=== PATIENT | male | born 1960 | race Caucasian/White ===

== ENCOUNTER 2017-04-26 19:29 | Emergency (ER) | payer OTHER ==
[~2017-04-26] VITALS: Ht 182.9 cm; Wt 95.9 kg
[~2017-04-26 19:29] MED LIST: ALBUTEROL S2.5 MG/.5 IN; AMLODIPINE5 MG PO; APRESOLINE50 MG PO; BUMETANIDE2 MG IN; CARVEDILOL25 MG PO; CLONIDINE0.1 MG PO; CLONIDINE0.3 MG PO; CLORPRES PO; DELTASONE20 MG PO; DUONEB IN; FUROSEMIDE40 MG PO; GABAPENTIN100 MG PO; HYDRALAZINE100 MG PO; HYDRALAZINE25 MG PO; HYDROCHLORO25 MG/TAB PO; HYDROCHLOROT25 MG PO; K-TAB20 MEQ PO; LASIX 80 MG TAB80 M1 PO; LISINOP/HCTZ1 TA2 PO; LISINOPRIL20 MG PO; LOPRESSOR25 MG PO; METOLAZONE5 MG PO; NAPROXEN250 MG PO; NORVASC PO; NORVASC10 MG PO; NORVASC2.5 MG PO; OMEPRAZOLE20 MG PO; PERCOCET 5/325M1 TAB PO; PREDNISONE20 MG PO; SERTRALINE50 MG PO; SPIRONOLACT25 MG PO; VANCOMYCIN HCL1 GM IV; VITAMIN D50000 UN1 PO; ZESTRIL10 M1 PO; ZOCOR20 M1 PO; ZPAK PO
[2017-04-26 20:35] VITALS: BP 126/64
== END 2017-04-26 20:35 | disposition left against medical advice (07) | DRG 312 ==
LOC: ED 19:29
DX: R55 Syncope and collapse (principal); I95.9 Hypotension, unspecified; N18.3 Chronic kidney disease, stage 3 (moderate); Z91.19 Patient's noncompliance with other medical treatment and regimen; Y92.524 Gas station as the place of occurrence of the external cause; I12.9 Hypertensive chronic kidney disease with stage 1 through stage 4 chronic kidney disease, or unspecified chronic kidney disease; Z72.0 Tobacco use

== ENCOUNTER 2018-02-22 22:13 | Emergency (ER) | payer OTHER, MEDICARE ==
[~2018-02-22] VITALS: Ht 182.9 cm; Wt 100.2 kg
[2018-02-22 23:07] LABS: IMMATURE GRANULOCYTES 0.9 % (0.0-1.0); MEAN CORPUSCULAR HGB 31.8 pG CALC (26.0-32.0); MEAN CORPUSCULAR HGB CONC 32.1 g/L CALC (32.0-36.0); NEUT# 5.83 thou/uL (1.82-7.42); RED BLOOD COUNT 3.24 mill/uL (4.70-6.10); RED CELL DISTRI WIDTH 13.2 % (11.5-15.5)
[2018-02-22 23:09] LABS: HEMATOCRIT 32.1 % (39.0-50.0); HEMOGLOBIN 10.3 g/dl (14.0-18.0); MEAN CELL VOLUME 99.1 fL CALC (80.0-100.0)
[2018-02-22 23:18] LABS: BILIRUBIN, TOTAL 0.5 mg/dL (0.0-1.4)
[2018-02-22 23:22] LABS: ALBUMIN 4.1 g/dL (3.2-5.0); CREATININE 9.3 mg/dL (0.7-1.3); POTASSIUM 4.9 mmol/l (3.5-5.1); TOTAL PROTEIN 7.2 g/dL (6.3-8.2)
[2018-02-23] MEDS ORDERED: ZPAK PO (02:44)
[2018-02-23] MEDS ORDERED: CODEINE/GUAIFEN1 SOL PO (02:44)
[2018-02-23 02:53] VITALS: BP 172/90
== END 2018-02-23 03:00 | disposition home or self-care (01) | DRG 202 ==
LOC: ED 22:13
PROVIDERS: Emergency Medicine
DX: J20.9 Acute bronchitis, unspecified (principal); N18.6 End stage renal disease; I12.0 Hypertensive chronic kidney disease with stage 5 chronic kidney disease or end stage renal disease; F17.210 Nicotine dependence, cigarettes, uncomplicated; R05 Cough; R50.9 Fever, unspecified; R07.81 Pleurodynia; Z99.2 Dependence on renal dialysis

== ENCOUNTER 2018-12-31 08:46 | Day surgery (SDC) | payer MEDICARE ==
[~2018-12-31] VITALS: Ht 170.2 cm; Wt 99.4 kg
[~2018-12-31 08:46] MED LIST changes: +ADVIL MIGRAI200 M1 PO; +ALER-CAP25 MG PO; +ANTI-DIARRHE2 M1 PO; +ASPIRIN81 MG PO; +CODEINE/GUAIFEN1 SOL PO; +LIDOCAINE/PRILO1 CRE EX; +LORATADINE10 M1 PO; +TERAZOSIN5 MG PO; +TYLENOL 500MG TAB PO
[2018-12-31] MEDS ORDERED: NORCO1 TA1 PO (11:14)
[2018-12-31 13:01] VITALS: BP 163/87
== END 2018-12-31 12:05 | disposition home or self-care (01) ==
LOC: ORM 08:46
PROVIDERS: ATTEND Surgery
PROC: 0WHG43Z Insertion of Infusion Device into Peritoneal Cavity, Percutaneous Endoscopic Approach (ICD-10-PCS; principal; 2018-12-31)
DX: I12.0 Hypertensive chronic kidney disease with stage 5 chronic kidney disease or end stage renal disease (principal); N18.6 End stage renal disease; Z99.2 Dependence on renal dialysis
CPT/HCPCS: J0131

== ENCOUNTER 2019-05-16 07:41 | Emergency (ER) | payer OTHER, MEDICARE ==
[~2019-05-16] VITALS: Ht 167.6 cm; Wt 99.0 kg
[~2019-05-16 07:41] MED LIST changes: +NORCO1 TA1 PO
[2019-05-16 08:50] LABS: HEMOGLOBIN 8.4 g/dl (14.0-18.0); IMMATURE GRANULOCYTES 1.4 % (0.0-5.0); MEAN CELL VOLUME 98.1 fL CALC (80.0-100.0); MEAN CORPUSCULAR HGB 31.9 pG CALC (26.0-32.0); MEAN CORPUSCULAR HGB CONC 32.6 g/L CALC (32.0-36.0); NEUT# 10.44 thou/uL (1.82-7.42); RED BLOOD COUNT 2.63 mill/uL (4.70-6.10); RED CELL DISTRI WIDTH 13.9 % (11.5-15.5)
[2019-05-16 09:00] LABS: HEMATOCRIT 25.8 % (39.0-50.0); PROTHROMBIN TIME 10.7 SECONDS (9.0-12.5)
[2019-05-16 09:05] LABS: BILIRUBIN, TOTAL 0.7 mg/dL (0.0-1.4); MAGNESIUM 1.6 mg/dL (1.6-2.3)
[2019-05-16 09:19] LABS: TOTAL PROTEIN 5.4 g/dL (6.3-8.2)
[2019-05-16 09:20] LABS: CREATININE 21.1 mg/dL (0.7-1.3)
[2019-05-16] MEDS ORDERED: CALCITRIOL0.25 MC1 PO (09:20)
[2019-05-16] MEDS ORDERED: VELPHORO500 MG PO (09:22)
[2019-05-16 11:16] VITALS: BP 116/68
== END 2019-05-16 11:00 | DRG 193 ==
LOC: ED 07:41
DX: J18.9 Pneumonia, unspecified organism (principal); N18.6 End stage renal disease; I12.0 Hypertensive chronic kidney disease with stage 5 chronic kidney disease or end stage renal disease; F17.200 Nicotine dependence, unspecified, uncomplicated; Z99.2 Dependence on renal dialysis; Z88.0 Allergy status to penicillin

== ENCOUNTER 2022-07-09 17:47 | Inpatient (IN) | payer MEDICARE ==
[2022-07-09] VITALS (12 sets, daily range): BP systolic 108–158; BP diastolic 58–84
[~2022-07-09] VITALS: Ht 170.2 cm; Wt 94.1 kg
[~2022-07-09 17:47] MED LIST changes: +AMLODIPINE BESY10 MG PO; +CALCITRIOL0.25 MC1 PO; +SENSIPAR30 MG PO; +VELPHORO500 MG PO
--- NOTE | 2022-07-09 17:47 | NUR ---
PT TO ROOM IN PERSONAL WC
[2022-07-09] MEDS ORDERED: IBUPROFEN600 MG PO (18:01)
[2022-07-09] MEDS ORDERED: CLOPIDOGREL75 MG PO (18:02)
[2022-07-09] MEDS ORDERED: DOCUSATE CAL240 MG PO (18:02)
[2022-07-09] MEDS ORDERED: ROSUVASTATIN CA20 MG (18:02)
[2022-07-09] MEDS ORDERED: BENADRYL 25MG C25 MG PO (18:03)
[2022-07-09] MEDS ORDERED: ASPIRIN 81 LOW81 MG (18:03)
[2022-07-09] MEDS ORDERED: HYDROCODONE/ACE1 T12 PO (18:04)
[2022-07-09] MEDS ORDERED: PHOSLYRA PO (18:05)
[2022-07-09 18:35] LABS: HEMATOCRIT 34.8 % (39.0-50.0); HEMOGLOBIN 10.7 g/dl (14.0-18.0); IMMATURE GRANULOCYTES 0.2 % (0.0-5.0); MEAN CORPUSCULAR HGB 27.9 pG CALC (26.0-32.0); MEAN CORPUSCULAR HGB CONC 30.7 g/dL CAL (32.0-36.0); NEUT# 5.52 thou/uL (1.82-7.42); RED BLOOD COUNT 3.83 mill/uL (4.70-6.10); RED CELL DISTRI WIDTH 14.4 % (11.5-15.5)
[2022-07-09 18:36] LABS: MEAN CELL VOLUME 90.9 fL CALC (80.0-100.0)
[2022-07-09 18:50] LABS: ALBUMIN 3.8 g/dL (3.2-5.0); BILIRUBIN, TOTAL 0.3 mg/dL (0.0-1.4); TOTAL PROTEIN 6.1 g/dL (6.3-8.2)
[2022-07-09 19:00] LABS: PROTHROMBIN TIME 10.2 SECONDS (9.0-12.5)
[2022-07-09 19:01] LABS: POTASSIUM 3.4 mmol/l (3.5-5.1)
[2022-07-09 19:02] LABS: CREATININE 7.2 mg/dL (0.7-1.3)
--- NOTE | 2022-07-09 19:20 | NUR ---
PT TRANSFERRED TO BED VIA HOYIER LIFT.
--- NOTE | 2022-07-09 19:30 | NUR ---
PT. C/O GENERALZIED BACK PAIN AND MUSCLE SPASM OF UPPER AND LOWER EXTS. STATES "WAS SEEN TODAY AND DRS OFFICE AND TOLD TO COME TO ER BECAUSE HE MAY HAVE HAD A STROKE, I TOOK HIM HOME TO DO HIS DIALYSIS BEFORE BRINGING HIM TO ER. 3 WEEKS AGO HE COULD TRANSFER BY HIMSELF FROM W/C TO CHAIR AND LAST 2 WEEKS HE WAS ABLE TO TRANSFER ONLY WITH MY ASSIST AND THE PAST 3-4 DAYS HE CA'T EVEN LIFT HIS ARMS TO FEED HIMSELF DUE TO WEAKNESS AND THE SPASMS". PT. WITH HX OF BACK PROBLEMS AND W/C BOUND FOR SEVERAL YEARS BUT OVER THE PAST MONTH HE'S GONE DOWN [place] WITH INCREASED WEAKNESS AND UNABLE TO DO ANYTHING OR BE LEFT ALONE".
--- NOTE | 2022-07-09 20:00 | NUR ---
PT. STATES "STARTED WITH TIGNLING IN RIGHT ARM ABOUT 3-4 WEEKS AGO THAT RAN FROM HIS FINGERS UP TO HIS SHOULDER AND AT THAT TIME, NOTED THAT MY LEGS WERE BECOMING WEAKER, 2-3 WEEKS AGO I WAS ABLE TO TRANSFER TO THE , AND THEN ABOUT 1-2 WEEKA AGO HAD TO HAVE MY TRANSFER ASSIST AND OVER THIS PAST WEEK I CAN'T EVEN LIFT MY ARMS TO FEED MYSELF AND HOLD ANYTHING WITHOUT DROPPING IT"
--- NOTE | 2022-07-09 20:30 | NUR ---
RETURNED FROM CT SCAN. RESPOSITIONED FOR COMFORT ONTO RIGHT SIDE, PER PT. REQUEST STATES "I HAVE A SORE ON THE LEFT BUTTOCK THAT CAUSES PAIN IF I LAY IN ONE POSITION TO LONG". UNBABLE TO TURN PT. FAR ENOUGH OVER TO EXAMINE, DUE TO PAIN, PT. STATES "THAT'S FAR ENOUGH, NO MORE". STATES "PAIN MEDS HAVE HELPED SOME BUT WHEN THE SPASMS START, IT BECOMES VERY PAINFUL.
--- NOTE | 2022-07-09 21:31 | NUR ---
UPDATED FAMILY RE:WAIT FOR CT RESULTS. VERB UNDERSTANDING
--- NOTE | 2022-07-09 22:30 | NUR ---
PT. ASLEEP AT PRESENT. AT BEDSIDE. VSS.
--- NOTE | 2022-07-09 23:30 | NUR ---
TELE NEURO INTERVIEWING PT AND AT THIS TIME
[2022-07-10] VITALS (12 sets, daily range): BP systolic 117–169; BP diastolic 61–87
--- NOTE | 2022-07-10 00:30 | NUR ---
ALERT AND ORIENTED X3. CONTINUES TO HAVE ARM AND LEG SPASMS, BACK PAIN.
--- NOTE | 2022-07-10 01:45 | NUR ---
REPORT CALLED TO [facility]AN RE:ADMIT. TRANSPORTED VIA STRETCHER TELE IN PLACE.
--- NOTE | 2022-07-10 01:50 | NUR ---
RECIEVED PT FROM ED IN STABLE CONDITION. PT A COMPLETE TRANSFER TOOK 4 NURSES TO MOVE FROM STRETCHER TO BED. ALERT AND ORIENTATED X3. PT DENIES ANY NEEDS AT THIS TIME. ALL SAFETY PRECAUTIONS IN PLACE AT THIS TIME
[2022-07-10 02:59] LABS: TSH, 3RD GENERATION 2.05 uIU/mL (0.47 - 4.68)
--- NOTE | 2022-07-10 04:00 | NUR ---
PT SLEEPING IN BED, AROUSES TO TOUCH. PT VERY WEAK. PT DENIES ANY NEEDS AT THIS TIME ALL SAEFTY PRECAUTIONS IN PLACE AT THIS TIME.
--- NOTE | 2022-07-10 07:49 | NUR ---
Patient is screned for PT intervention and may benefit from consult if medical agrees
--- NOTE | 2022-07-10 12:45 | NUR ---
pATIENTNOTEDTO HAVE BIDIRECTIONAL NYSTAGMUS. PATIENT APPEARS TO HAVE DECREASED RESPONSIVENESS BUT IS EASILY AROUSED TO VERBAL STIMULI. PATIENT FOLLOWS COMMANDS AND ABLE TO ANSWER ALL QUESTIONS ASKED. PATIENT HAS NO DYSARTHRIA OR ASPHASIA. PATIENT HAS UNILATERAL DRIFTS AND UPPER BILATERAL ATAXIA. VISUAL NG AND SENSATION INTACT. STATES DECLINE STARTED 2 WEEKS PRIOR. MD NOTIFIED OF STATUS
--- NOTE | 2022-07-10 18:35 | NUR ---
patient going to dialysis at this time. accompanying him in order to oversee care as she is his at home caregiver and dialyses him there. patient just ate 100 percent of his dinner and is feeling ready for dialysis. patient is less lethargic since coming back from his MRI at 1600.
--- NOTE | 2022-07-10 23:00 | NUR ---
DIALYSIS NOTE: START TIME:2005 END TIME:2254 TIME COMPLETED: 2.5 HOURS FLUID REMOVED: 600 ml PRE TX WEIGHT: 84.1 KG POST TX WEIGHT: 83.5 KG PRE TX VS: NIBP 151/76mmHg HR 73 bpm RR 18/MIN T 97.8 F POST TX VS: NIBP 149/72mmHg HR 76 bpm RR 18/MIN T 98.2 F HEP B ANTIGEN: 07/10/22 HEP B ANTIBODY: 07/10/22 VERIFIED INFORMED CONSENT SIGNED BY PATIENT AND DR. PALMA, WITNESSED BY Bonnie NEWELL RN. LABS REVIEWED, ASSESMENT COMPLETED. ORDERS FOR HEMODIALYSIS OBTAINED FROM DR. PALMA. EDUCATION PROVIDED TO PATIENT. ACCESS: LUE AVF, +THRILL, +BRUIT. CANNULATION COMPLETED WITH 15G NEEDLES BY PT'S . PT'S DIALYZES PT AT HOME AND REQUEST TO CANNULATE. POST DIALYSIS TX NEEDLES REMOVED AND PRESSURE HELD BY FISTULA CLAMPS FOR 10 MINUTES UNTIL BLEEDING CONTROLLED, DRY DRESSING APPLIED AND SECURED WITH PAPER TAPE. MEDICATIONS ADMINISTERED: HEPARIN 4,000 UNITS LOADING DOSE, RETACRIT 4,000 UNITS, SEE E-MAR. ASSESMENT: PT A/OX3, PLEASANT AND COOPERATIVE. RESPIRATIONS REGULAR AND UNLABORED. LUNGS clear WITH DIMINISHED BASES. WEARING 02 @2L/MIN VIA NC, SR ON TELEMETRY. TRACE EDEMA BLE. PRIMARY NURSE Jennifer SALDAÑA RN, REPORT RECEIVED PRE TX AND RETURNED POST TX. Serafin PRASAD SERIAL #:[id number] DIALYZER/LOT #: [id number] CARTRIDGE LOT #: [id number] PH: 7.4 WATER TEMP: 75.7 R/O REJECTION: 99 % EXPECTED CONDUCTIVITY: 13.8 ACTUAL CONDUCTIVITY: 13.9
[2022-07-11] VITALS (30 sets, daily range): BP systolic 82–156; BP diastolic 45–87
--- NOTE | 2022-07-11 05:24 | NUR ---
PATIENT RECIEVED DIALYSIS THIS EVENING. 600 ML TAKEN OFF PATIENT TOLERATED WELL. HOWEVER WAS UP AND AGITATED THIS MORNING PATIENT STATES HE CANNOT MOVE
[2022-07-11 05:33] LABS: ALBUMIN 3.3 g/dL (3.2-5.0); MAGNESIUM 1.9 mg/dL (1.6-2.3)
[2022-07-11 05:50] LABS: CREATININE 6.4 mg/dL (0.7-1.3)
--- NOTE | 2022-07-11 08:00 | NUR ---
RC'D REPORT, PT IN BED ASLEEP, VITALS ARE UNSTABLE, INFORMED MD, PT IS NOW ON NC 4L, PT CYANOTIC, SPOKE TO AND EXPLAINED WHAT IS HAPPENING,TRANSFERRING PT TO ICU.
--- NOTE | 2022-07-11 09:28 | NUR ---
pt transfered from [facility] placed on bipap 08/03 35% pt tolerating well
[2022-07-11 09:31] LABS: HEMATOCRIT 34.9 % (39.0-50.0); HEMOGLOBIN 10.3 g/dl (14.0-18.0); IMMATURE GRANULOCYTES 0.5 % (0.0-5.0); MEAN CELL VOLUME 94.1 fL CALC (80.0-100.0); MEAN CORPUSCULAR HGB 27.8 pG CALC (26.0-32.0); MEAN CORPUSCULAR HGB CONC 29.5 g/dL CAL (32.0-36.0); NEUT# 7.04 thou/uL (1.82-7.42); RED BLOOD COUNT 3.71 mill/uL (4.70-6.10); RED CELL DISTRI WIDTH 14.4 % (11.5-15.5)
--- NOTE | 2022-07-11 10:48 | NUR ---
SPEECH PATHOLOGY-- DEVOPS CONSULTANT ATTEMPTED TO SEE PT. PT CURRENTLY ON BIPAP D/T HIGH CO2 LEVELS. DEVOPS CONSULTANT TO F/U FOR EVAL LATER TODAY. DISCUSSED WTIH RT ABOUT TRANSITIONING TO NC O2.
--- NOTE | 2022-07-11 10:48 | NUR ---
[facility] CALLED TO STATE THEY WERE TRANSFERRING PT TO ICU TO BE PLACED ON BIPAP, SATS HAD DROPPED TO THE 70'S, PT NOT AROUSING NORMAL. ONE PT IS PLACED ON BIPAP IN ICU HE BEGAN TO OPEN EYES AND RESPOND MORE. ABLE TO RAISE MESHA ARMS, ASKING WHY HE WAS PLACED ON BIPAP, PT AT BEDSIDE. DIALYSIS NURSE HERE WILL NOT HAVE DIALYSIS TODAY BECAUSE OF BLOOD PRESSURE OF 91/54 WILL RESUME TOMORROW AT BEDSIDE. PT IS LESS RESTLESS, TALKING AND ANSWERING QUESTIONS APPROPRIATELY. STATES THE WEAKNESS IS CAME IN STARTED CLOSE TO A MONTH AGO AND HAS PROGRESSIVELY GOTTEN WORSE,, A MONTH AGO COULD HELP TRANSFER HIMSELF TO WHEELCHAIR, ABOUT 2 WEEKS AGO GOT TO THE POINT HE NEEDED ALOT OF HELP FOR TURNING OVER AND TRANSFERING HIMSELF, TO A COUPLE OF DAYS AGO TO WEAK TO DO ANYTHING FOR HIMSELF. HE STATES HE HAS BEEN USING A WHEELCHAIR FOR APPROXIMATELY 1 YEAR FOR SPINAL COMPLAINTS. RECOMMENDING THAT HE HAVE A SPINAL TAP BUT PT IS ON PLAVIX AND CAN NOT BE DONE. CANO RECOMMENDED BUT PT REFUSING, STATES HASNT URINATED FOR OVER 2 YEARS. VITAL SIGNS GETTING BETTER PT REMAINS ON BIPAP. PT ONLY COMPLAINT AT THIS TIME IS HIS COCCYX IS SORE FROM LAYING DOWN ON MATTRESS FOR LAST SEVERAL DAYS. TURNED PT TO RIGHT SIDE.
--- NOTE | 2022-07-11 11:31 | NUR ---
RAYRAY TOLLIVER CAME TO ICU AND STATES THAT DR. JONES HAS AGREED TO DO LUMBAR PUNCTURE WHEN HE HAS THE CHANCE TO COME UP FROM ER. PT IS SLEEPING AT THIS TIME, VITAL SIGNS REMAIN STABLE. LEFT TO GO GET LUNCH AND WILL RETURN SHORTLY. AT THIS TIME, DIRECTOR HAS STATED THAT PT CAN HAVE VISITORS AROUND THE CLOCK, AND CAN STAY LATE SHE WANTS.
--- NOTE | 2022-07-11 12:46 | NUR ---
PT RESTING QUIETLY ON BED, VITAL SIGNS REMAIN THE SAME, WILL CONTINUE TO MONITER.
--- NOTE | 2022-07-11 13:23 | NUR ---
Patient is transferred to ICU and is on BIPAP. We will check in again with him in the afternoon
--- NOTE | 2022-07-11 14:18 | NUR ---
DOING A TELECONFERENCE WITH PT AND .
--- NOTE | 2022-07-11 15:19 | NUR ---
HAVE ASKED FOR MED ORDER FOR ANXIETY, BUT HAVE NOT RECEIVED ORDER OF YET. PT TRYING TO PULL MASK OFF AND MOVING ARMS ALL OVER, CONSTANTLY WANTING TO BE TURNED AND REQUESTING MASK TAKEN OFF.
--- NOTE | 2022-07-11 18:58 | NUR ---
Patient requested for Bipap to be removed to give him a break from the mask. Currently on 6 Liters of oxygen, tolerating well with no signs of distress.
[2022-07-12] VITALS (57 sets, daily range): BP systolic 92–151; BP diastolic 48–84
--- NOTE | 2022-07-12 00:36 | NUR ---
Patient asleep. Not in distress.
--- NOTE | 2022-07-12 04:19 | NUR ---
Patient repositioned. Not in dsitress.
[2022-07-12 05:39] LABS: HEMATOCRIT 35.7 % (39.0-50.0); HEMOGLOBIN 10.7 g/dl (14.0-18.0); MEAN CELL VOLUME 94.2 fL CALC (80.0-100.0); MEAN CORPUSCULAR HGB 28.2 pG CALC (26.0-32.0); RED BLOOD COUNT 3.79 mill/uL (4.70-6.10); RED CELL DISTRI WIDTH 14.4 % (11.5-15.5)
[2022-07-12 05:45] LABS: ALBUMIN 3.5 g/dL (3.2-5.0); POTASSIUM 4.4 mmol/l (3.5-5.1)
--- NOTE | 2022-07-12 05:47 | NUR ---
Patient repositioned. Complain of discomfort on the hips.
[2022-07-12 05:59] LABS: CREATININE 8.5 mg/dL (0.7-1.3)
--- NOTE | 2022-07-12 06:49 | NUR ---
BIPAP STANDBY. PT. ON 5L NC. O2 SAT 100%. DECREASED TO 3L.
--- NOTE | 2022-07-12 07:20 | NUR ---
REMAINS AT BEDSIDE, PT WAS SLEEPING, WOKE PT UP FOR BEDSIDE ASSESSMENT. 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 PT STATES SLEPT THRU MOST OF THE NIGHT WITH NO COMPLAINTS EXCEPT FOR BACK AND BUTTOCKS SORE FROM LAYING. NO OPEN WOUND IN AREA, REDNESS NOTED ON COCCYX BUT NO DIFFERENT THAN YESTERDAYS FINDINGS. NEURO CHECK REMAINS THE SAME, WILL CONTINUE TO MONITER.
--- NOTE | 2022-07-12 08:52 | NUR ---
INDIO EXAMINING PT AND ORDERED ANOTHER ABG. AFTER ABG DR. PUGH PT PLACED BACK ON BIPAP, WILL ORDER A TRAY FOR LUNCH AND TRY TO SEE HOW HE DOES WITH OUT BIPAP FOR AWHILE. PT WILL WAKE UP AND TALK TO STAFF BUT IS VERY SLOWTO RESPOND AT THIS TIME
--- NOTE | 2022-07-12 09:05 | NUR ---
PT THERAPY HERE WITH LIMITED RANGE OF MOTION EXERCISE.
--- NOTE | 2022-07-12 11:09 | NUR ---
pt continues to rest quietly , bipap remains on pt.
--- NOTE | 2022-07-12 12:23 | NUR ---
SPEAKING WITH PT AND PTS , AND THEY ARE CONCERNED ABOUT WHAT THE PLAN OF ACTION IS FOR HIM, WHAT TO EXPECT, AND INFORMED THEM THAT I WOULD ASK DR. AUGUST TO SPEAK WITH THEM, THEY ALSO STATE THAT THEY WOULD LIKE TO TALK TO HIM ABOUT A DNR, THAT THEY HAD DISCUSSED IT AND THAT IS WHAT THEY WANT TO DO.
--- NOTE | 2022-07-12 13:18 | NUR ---
PT OFF OF BIPAP AND EATING LUNCH AT THIS TIME. N/C @ 4 L SATS 96%, PT HAS INCREASED AWARENESS AND TALKING AT THIS TIME TO STAFF
--- NOTE | 2022-07-12 14:06 | NUR ---
DR. DOAN CONSULTING WITH PT AND AT THIS TIME.
--- NOTE | 2022-07-12 14:52 | NUR ---
DIALYSIS NURSE HERE AT BEDSIDE
--- NOTE | 2022-07-12 16:26 | NUR ---
PT REMAINS ON DIALYSIS WITH NURSE AT BEDSIDE, VITAL SIGNS STABLE.
--- NOTE | 2022-07-12 17:51 | NUR ---
DR. AUGUST HERE TO TALK TO PT AND , THEY HAVE DECIDED AGAINST HAVING A DNR SIGNED AT THIS TIME.
--- NOTE | 2022-07-12 18:00 | NUR ---
DIALYSIS NOTE: START 1537 END 1751 2 HOUR DIALYSIS TX COMPLETED AT BEDSIDE WITH NO FLUID REMOVED, TIME OF TX AND FLUID REMOVAL PER PT AND SPOUSE REQUEST. DR. PALMA AWARE. PT TOLERATED PROCEDURE WELL.
--- NOTE | 2022-07-12 18:13 | NUR ---
CALLED TRANSFER CENTER AND SPOKE WITH JOSE ANGEL AT [facility] FOR POSSIBLE BED PLACEMENT. WILL SEND FACE SHEET AND COVID TEST TO THEM
--- NOTE | 2022-07-12 22:23 | NUR ---
Patient for transfer to [facility]. Transfer coordinated with transfer center. Report was given and [facility] was called for transport. 2199: Transport arrived. 2224: Patient left the unit via stretcher. Not in in distress. On O2 3lpm. Sinus rhythm, no complain of pain.
== END 2022-07-12 22:25 | disposition short-term general hospital (02) | DRG 94 ==
LOC: ED 17:47 → ED-I 07-10 00:10 → ED 07-10 00:44 → MS2 07-10 00:45 → ICU 07-11 09:14
PROVIDERS: Emergency Medicine; Family Medicine; Internal Medicine Nephrology; Nurse Practitioner; ADMIT Internal Medicine; ATTEND Internal Medicine
PROC: 5A09457 Assistance with Respiratory Ventilation, 24-96 Consecutive Hours, Continuous Positive Airway Pressure (ICD-10-PCS; 2022-07-11)
PROC: 5A1D70Z Performance of Urinary Filtration, Intermittent, Less than 6 Hours Per Day (ICD-10-PCS; principal; 2022-07-12)
DX: G61.0 Guillain-Barre syndrome (principal); J96.01 Acute respiratory failure with hypoxia; J96.02 Acute respiratory failure with hypercapnia; N18.6 End stage renal disease; I12.0 Hypertensive chronic kidney disease with stage 5 chronic kidney disease or end stage renal disease; G82.20 Paraplegia, unspecified; N25.81 Secondary hyperparathyroidism of renal origin; E87.29 Other acidosis; M48.02 Spinal stenosis, cervical region; E11.22 Type 2 diabetes mellitus with diabetic chronic kidney disease; D63.1 Anemia in chronic kidney disease; Z99.2 Dependence on renal dialysis; E78.5 Hyperlipidemia, unspecified; I25.10 Atherosclerotic heart disease of native coronary artery without angina pectoris; F17.210 Nicotine dependence, cigarettes, uncomplicated; Z95.5 Presence of coronary angioplasty implant and graft; Z79.02 Long term (current) use of antithrombotics/antiplatelets; Z79.82 Long term (current) use of aspirin; Z99.3 Dependence on wheelchair
CPT/HCPCS: G0378; J1644

== ENCOUNTER 2022-09-21 21:49 | Emergency (ER) | payer MEDICARE ==
[2022-09-21] VITALS (8 sets, daily range): BP systolic 149–188; BP diastolic 66–87
[~2022-09-21] VITALS: Ht 170.2 cm; Wt 82.0 kg
[~2022-09-21 21:49] MED LIST changes: +ASPIRIN 81 LOW81 MG; +BENADRYL 25MG C25 MG PO; +CLOPIDOGREL75 MG PO; +DOCUSATE CAL240 MG PO; +HYDROCODONE/ACE1 T12 PO; +IBUPROFEN600 MG PO; +PHOSLYRA PO; +ROSUVASTATIN CA20 MG
[2022-09-21 22:16] LABS: BASO% 0.5 % (0-3); EOS% 2.5 % (0-8); IMMATURE GRANULOCYTES 1.1 % (0.0-5.0); LYMPH% 22.7 % (15-41); MEAN CELL VOLUME 93.4 fL CALC (80.0-100.0); MEAN CORPUSCULAR HGB 27.2 pG CALC (26.0-32.0); MEAN CORPUSCULAR HGB CONC 29.2 g/dL CAL (32.0-36.0); MONO% 8.9 % (2-13); NEUT# 2.8 thou/uL (1.82-7.42); NEUT% 64.3 % (42-76); RED BLOOD COUNT 3.01 mill/uL (4.70-6.10); RED CELL DISTRI WIDTH 15.1 % (11.5-15.5)
[2022-09-21 22:20] LABS: HEMOGLOBIN 8.2 g/dl (14.0-18.0)
[2022-09-21 22:21] LABS: HEMATOCRIT 28.1 % (39.0-50.0)
[2022-09-21 22:29] LABS: BILIRUBIN, TOTAL 0.2 mg/dL (0.0-1.4); TOTAL PROTEIN 5.1 g/dL (6.3-8.2)
[2022-09-21 22:30] LABS: ALBUMIN 2.7 g/dL (3.2-5.0); CREATININE 2.6 mg/dL (0.7-1.3); POTASSIUM 3.2 mmol/l (3.5-5.1)
[2022-09-21 22:36] LABS: D-DIMER 2.56 mg/L (0.19-0.60)
[2022-09-21 22:41] LABS: ACT PARTIAL THROMBO TIME 30.1 SECONDS (20.0-32.5); PROTHROMBIN TIME 10.2 SECONDS (9.0-12.5)
== END 2022-09-22 00:18 | disposition home or self-care (01) ==
LOC: ED 21:49
PROVIDERS: Family Medicine
DX: R79.81 Abnormal blood-gas level (principal); I12.0 Hypertensive chronic kidney disease with stage 5 chronic kidney disease or end stage renal disease; E11.22 Type 2 diabetes mellitus with diabetic chronic kidney disease; N18.6 End stage renal disease; D63.1 Anemia in chronic kidney disease; Z99.2 Dependence on renal dialysis; F17.200 Nicotine dependence, unspecified, uncomplicated; Z99.81 Dependence on supplemental oxygen

== ENCOUNTER 2022-09-26 19:46 | Inpatient (IN) | payer MEDICARE ==
[2022-09-26] VITALS (16 sets, daily range): BP systolic 128–185; BP diastolic 52–72
[~2022-09-26] VITALS: Ht 170.2 cm; Wt 81.6 kg
[2022-09-26] MEDS ORDERED: APRESOLINE10 MG PO (20:10)
[2022-09-26 20:17] LABS: BASO% 0.1 % (0-3); EOS% 0.1 % (0-8); HEMATOCRIT 27.1 % (39.0-50.0); HEMOGLOBIN 8.1 g/dl (14.0-18.0); LYMPH% 5.3 % (15-41); MEAN CELL VOLUME 91.9 fL CALC (80.0-100.0); MEAN CORPUSCULAR HGB 27.5 pG CALC (26.0-32.0); MEAN CORPUSCULAR HGB CONC 29.9 g/dL CAL (32.0-36.0); MONO% 5.1 % (2-13); NEUT# 6.05 thou/uL (1.82-7.42); NEUT% 88.4 % (42-76); RED BLOOD COUNT 2.95 mill/uL (4.70-6.10)
[2022-09-26 20:28] LABS: ALBUMIN 2.8 g/dL (3.2-5.0); CREATININE 2.6 mg/dL (0.7-1.3); POTASSIUM 3.2 mmol/l (3.5-5.1); TOTAL PROTEIN 5.2 g/dL (6.3-8.2)
[2022-09-26 20:32] LABS: BILIRUBIN, TOTAL 0.3 mg/dL (0.0-1.4)
--- NOTE | 2022-09-26 21:30 | NUR ---
med not in pyxis, called curing room supervisor to get med
--- NOTE | 2022-09-26 23:00 | NUR ---
REPORT GIVEN TO RN, O, PT TRANSERRED UP TO ICU ROOM 7, PT IN STABLE CONDITION
[2022-09-27] VITALS (66 sets, daily range): BP systolic 101–175; BP diastolic 35–73
[2022-09-27 05:52] LABS: BASO% 0.2 % (0-3); HEMATOCRIT 27.1 % (39.0-50.0); HEMOGLOBIN 7.9 g/dl (14.0-18.0); IMMATURE GRANULOCYTES 0.8 % (0.0-5.0); LYMPH% 4.1 % (15-41); MEAN CELL VOLUME 93.4 fL CALC (80.0-100.0); MEAN CORPUSCULAR HGB 27.2 pG CALC (26.0-32.0); MEAN CORPUSCULAR HGB CONC 29.2 g/dL CAL (32.0-36.0); MONO% 5.4 % (2-13); NEUT# 7.84 thou/uL (1.82-7.42); NEUT% 89.5 % (42-76); RED BLOOD COUNT 2.9 mill/uL (4.70-6.10); RED CELL DISTRI WIDTH 15.1 % (11.5-15.5)
[2022-09-27 06:30] LABS: ALBUMIN 2.8 g/dL (3.2-5.0); BILIRUBIN, TOTAL 0.2 mg/dL (0.0-1.4); POTASSIUM 3.6 mmol/l (3.5-5.1); TOTAL PROTEIN 5.3 g/dL (6.3-8.2)
[2022-09-27 06:58] LABS: C-REACTIVE PROTEIN 9.8 mg/dL (0-0.9)
--- NOTE | 2022-09-27 11:16 | NUR ---
FIO2 DECREASED TO 40%
--- NOTE | 2022-09-27 13:32 | NUR ---
FIO2 DECREASED TO 405
[2022-09-28] VITALS (23 sets, daily range): BP systolic 125–182; BP diastolic 50–66
--- NOTE | 2022-09-28 | NUR ---
REPORT RECIEVED FROM YEN MADRIGAL. PT HAS [facility] FISTULA, DIALYSIS M/W/F. YELLOW DNR COPY ON CHART. PATIENT WAS ON 2L NC UPON ARRIVAL TO UNIT, AND RT PLACE PT BACK ON BIPAP AROUNF 1999. FAMILY WAS IN ROOM UNTIL VISITING HOURS WERE OVER. PATIENT IS AOX3 WITH PERIODS OF BRIEF CONFUSION. HEART RHYTHM SEEMS TO BE SINUS ARRYTHMIA FROM 47-90 BPM. VSS, AND PT NAD. RESTING AT THIS TIME.
[2022-09-28 05:51] LABS: BASO% 0.2 % (0-3); EOS% 0.5 % (0-8); HEMATOCRIT 25.2 % (39.0-50.0); HEMOGLOBIN 7.4 g/dl (14.0-18.0); IMMATURE GRANULOCYTES 0.6 % (0.0-5.0); LYMPH% 15.9 % (15-41); MEAN CELL VOLUME 91.3 fL CALC (80.0-100.0); MEAN CORPUSCULAR HGB 26.8 pG CALC (26.0-32.0); MEAN CORPUSCULAR HGB CONC 29.4 g/dL CAL (32.0-36.0); MONO% 10.4 % (2-13); NEUT# 4.46 thou/uL (1.82-7.42); NEUT% 72.4 % (42-76); RED BLOOD COUNT 2.76 mill/uL (4.70-6.10); RED CELL DISTRI WIDTH 14.9 % (11.5-15.5)
[2022-09-28 06:13] LABS: ALBUMIN 2.6 g/dL (3.2-5.0); BILIRUBIN, TOTAL 0.2 mg/dL (0.0-1.4); CREATININE 3.9 mg/dL (0.7-1.3); POTASSIUM 3.3 mmol/l (3.5-5.1); TOTAL PROTEIN 4.8 g/dL (6.3-8.2)
--- NOTE | 2022-09-28 07:00 | NUR ---
REPORT RECEIVED FROM NEWS SPECIALIST - PT CURRENTLY ON BIPAP, SETTINGS ARE 16/ RR20 35% FIO2 - PT DENIES PAIN OR ANY NEEDS AT THIS TIME - CALL LIGHT IN REACH AND FAMILY AT BEDSIDE
--- NOTE | 2022-09-28 09:01 | NUR ---
Pt alert and talking with family today - case mgmt working on bipap for home - hospice consult today at 10am - pt stable - denies any pain or needs at this time - call light at bedside as well as several family members
--- NOTE | 2022-09-28 11:07 | NUR ---
Pt resting in bed with several family members at bedside - pt denies any pain - no urine or bm - pt will not eat or drink currently - call light in reach
--- NOTE | 2022-09-28 12:42 | NUR ---
PRELIMINARY BLOOD CULTURE RESULTS 3/4 VIALS GROWING GRAM (-) RODS
--- NOTE | 2022-09-28 13:51 | NUR ---
Pt in bed with family around bedside - pt denies pain at this time, had a headache that i medicated with tylenol per MD order - no concerns or needs at this time - call light in reach
--- NOTE | 2022-09-28 15:00 | NUR ---
PT WILL BE DC'D SOON TO HOSPICE - STILL CURRENTLY ON BIPAP SATTING 97% - FAMILY AT BEDSIDE - CALL LIGHT IN REACH
== END 2022-09-28 16:05 | disposition hospice, inpatient (51) | DRG 177 ==
LOC: ED 19:46 → ED-I 21:10 → ED 21:16 → ICU 21:17
PROVIDERS: Emergency Medicine; Nurse Practitioner Family; ADMIT Internal Medicine; ATTEND Internal Medicine
PROC: 5A09457 Assistance with Respiratory Ventilation, 24-96 Consecutive Hours, Continuous Positive Airway Pressure (ICD-10-PCS; principal; 2022-09-26)
DX: U07.1 COVID-19 (principal); J12.82 Pneumonia due to coronavirus disease 2019; N18.6 End stage renal disease; J96.22 Acute and chronic respiratory failure with hypercapnia; J96.21 Acute and chronic respiratory failure with hypoxia; I12.0 Hypertensive chronic kidney disease with stage 5 chronic kidney disease or end stage renal disease; G93.49 Other encephalopathy; E87.1 Hypo-osmolality and hyponatremia; D63.1 Anemia in chronic kidney disease; M48.00 Spinal stenosis, site unspecified; Z66 Do not resuscitate; Z51.5 Encounter for palliative care; Z99.2 Dependence on renal dialysis; F32.A Depression, unspecified; Z87.891 Personal history of nicotine dependence; Z99.81 Dependence on supplemental oxygen
CPT/HCPCS: S0073

== ENCOUNTER 2022-09-28 17:40 | Inpatient (IN) | payer OTHER, MEDICARE ==
[~2022-09-28] VITALS: Ht 162.6 cm; Wt 82.0 kg
[~2022-09-28 17:40] MED LIST changes: +APRESOLINE10 MG PO
[2022-09-28 20:00] VITALS: BP 165/76
[2022-09-29] VITALS (15 sets, daily range): BP systolic 52–165; BP diastolic 25–76
== END 2022-09-29 15:45 | disposition expired | DRG 951 ==
LOC: ICU 17:40
PROVIDERS: ADMIT Internal Medicine; ATTEND Internal Medicine
DX: Z51.5 Encounter for palliative care (principal); U07.1 COVID-19; J12.82 Pneumonia due to coronavirus disease 2019; J96.22 Acute and chronic respiratory failure with hypercapnia; J96.21 Acute and chronic respiratory failure with hypoxia; N18.6 End stage renal disease; G93.49 Other encephalopathy; I12.0 Hypertensive chronic kidney disease with stage 5 chronic kidney disease or end stage renal disease; G82.20 Paraplegia, unspecified; D63.1 Anemia in chronic kidney disease; M48.02 Spinal stenosis, cervical region; M54.12 Radiculopathy, cervical region; Z99.2 Dependence on renal dialysis; F32.A Depression, unspecified; Z66 Do not resuscitate; Z87.891 Personal history of nicotine dependence; Z88.0 Allergy status to penicillin; Z99.81 Dependence on supplemental oxygen
CPT/HCPCS: J2060